=== PATIENT | male | born 1990 | race African-American/Black ===

== ENCOUNTER 2017-09-12 13:33 | Emergency (ER) | payer SELFPAY ==
[2017-09-12] MEDS ORDERED: HYDROcodone/Acetaminophen 5/325 mg Tablet ONE (15:29)
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
== END 2017-09-12 16:43 | disposition home or self-care (01) ==
LOC: ERS 13:33
DX: S62.314A Displaced fracture of base of fourth metacarpal bone, right hand, initial encounter for closed fracture (principal); S62.141A Displaced fracture of body of hamate [unciform] bone, right wrist, initial encounter for closed fracture; F17.210 Nicotine dependence, cigarettes, uncomplicated; W22.01XA Walked into wall, initial encounter
CPT/HCPCS: 29125

== ENCOUNTER 2019-01-14 17:23 | Emergency (ER) | payer SELFPAY | END 2019-01-14 18:20 | disposition home or self-care (01) | LOC: ERS 17:23 | DX: R41.82 Altered mental status, unspecified (principal); F16.90 Hallucinogen use, unspecified, uncomplicated; F17.210 Nicotine dependence, cigarettes, uncomplicated | CPT/HCPCS: 99284 ==

== ENCOUNTER 2020-01-05 12:00 | Emergency (ER) | payer SELFPAY ==
[2020-01-05 13:54] LABS: Bacteria/HPF None Seen HPF (None Seen); Bilirubin Negative (Negative); Blood, Urine 1+ (Negative); Clarity Clear (Clear); Glucose, Urine (Dipstick) Normal (Negative); Leukocyte 75 Leu/uL (Negative); Mucous/LPF 1+ LPF (<2+); Nitrite Negative (Negative); Protein, Urine (Dipstick) 20 mg/dL (Neg-Trace); Squamous Epithelial 0-3 HPF (0-3)
[2020-01-05 14:01] LABS: #Basophils 0.1 thou/uL (0.0-0.2); #Eosinphils 0.2 thou/uL (0.0-0.7); #Lymphocytes 2.1 thou/uL (1.20-3.40); #Monocytes 0.6 thou/uL (0.11-0.59); #Neutrophils 2.7 thou/uL (1.40-6.50); %Basophils 1.6 % (0.0-1.0); %Eosinophils 4.2 % (0.0-10.0); %Lymphocytes 36.2 % (21.0-51.0); Hemoglobin 14.8 g/dL (14.0-18.0); Mean Corpuscular HGB CONC 33.1 g/dL (32.0-36.0); Mean Corpuscular Hemoglobin 32.9 pg (27.0-31.0); Mean Corpuscular Volume 99.5 fL (78.0-98.0); Mean Platelet Volume 7.2 fL (7.4-10.4); Platelet Count 258 thou/uL (130-400); RBC Distribution Width 12.1 % (11.5-14.5); Red Blood Cell (RBC) Count 4.49 mill/uL (4.70-6.10); White Blood Cell (WBC) Count 5.8 thou/uL (4.8-10.8)
[2020-01-05 14:26] LABS: ALT (SGPT) 14 U/L (8-55); AST (SGOT) 28 U/L (5-34); Albumin 4.5 g/dL (3.5-5.0); Alkaline Phosphatase 49 U/L (40-110); Anion Gap 11 mmol/L (10-20); BUN (Urea Nitrogen) 15 mg/dL (8.9-20.6); Bilirubin, Total 1.3 mg/dL (0.2-1.2); CK (CPK) 608 U/L (30-200); Calc. Creatinine Clearance 0 mL/min (70-130); Calcium 9.3 mg/dL (7.8-10.44); Carbon Dioxide 30 mmol/L (22-29); Chloride 102 mmol/L (98-107); Estimated GFR-MDRD 81; Globulin 2.9 g/dL (2.4-3.5); Glucose 83 mg/dL (70-105); Lipase 20 U/L (8-78); Potassium 3.5 mmol/L (3.5-5.1); Protein, Total 7.4 g/dL (6.0-8.3); Sodium 139 mmol/L (136-145)
--- NOTE | 2020-01-05 15:52 | CT ---
Exam: Abdomen CT without contrast Pelvic CT without contrast HISTORY: Left flank pain. Dehydration. COMPARISON: 04/09/2015 FINDINGS: Abdomen CT: Lung bases:Clear Heart size: Normal heart size Aorta: Normal caliber Solid organs: Limited evaluation by the lack of IV contrast. Grossly no solid organ abnormality Lymph nodes: No gastrohepatic, retrocrural or periportal lymphadenopathy Gallbladder: No CT evidence of cholecystitis Mesentery: No mass, lymphadenopathy, free air or free fluid Kidneys: No evidence of right-sided obstructive uropathy. Multiple calculi in the left renal pelvis. Largest calculus measures 0.6 cm. Mild prominence of the left renal pelvis and renal calyces. No evidence of obstructing calculus. The left ureter is decompressed. Alimentary canal: Limited evaluation by the lack of oral contrast. No bowel obstruction. Normal calib er appendix. CT PELVIS: No mass, adenopathy, free air or free fluid. Urinary bladder: No bladder calculi. Osseous structures: No lytic or blastic lesions IMPRESSION: 1. Mild dilatation of the left renal pelvis and left renal calyces without associated obstructive uro sang. 2. Nonobstructing calculi in the left renal pelvis. 3. Normal caliber appendix.
== END 2020-01-05 16:50 | disposition home or self-care (01) ==
LOC: ERS 12:00
DX: R10.9 Unspecified abdominal pain (principal); E86.0 Dehydration; F20.9 Schizophrenia, unspecified; F17.210 Nicotine dependence, cigarettes, uncomplicated
CPT/HCPCS: 74176; 80053; 81003; 81015; 82550; 83690; 85025; 96360; 96361

== ENCOUNTER 2020-03-22 18:09 | Emergency (ER) | payer SELFPAY | END 2020-03-22 19:10 | disposition home or self-care (01) | LOC: ERS 18:09 | DX: R07.9 Chest pain, unspecified (principal); F20.9 Schizophrenia, unspecified; F17.210 Nicotine dependence, cigarettes, uncomplicated; F16.10 Hallucinogen abuse, uncomplicated | CPT/HCPCS: 93005 ==

== ENCOUNTER 2022-08-14 13:16 | Day surgery (SDC) | payer SELFPAY ==
[2022-08-14 14:57] LABS: Bilirubin Negative (Negative); Blood, Urine Trace (Negative); Clarity Turbid (Clear); Glucose, Urine (Dipstick) Normal (Negative); Ketone, Urine Negative (Negative); Leukocyte 500 Leu/uL (Negative); Nitrite Negative (Negative); Protein, Urine (Dipstick) 10 mg/dL (Neg-Trace); Specific Gravity, Urine 1.023 (1.002-1.036); Squamous Epithelial None Seen HPF (0-3); Urobilinogen Normal mg/dL (Less than 2); pH, Urine 7.5 (5.0-9.0)
[2022-08-14 15:03] LABS: Bacteria/HPF 1+ HPF (None Seen)
[2022-08-14] MEDS ORDERED: Ketorolac Tromethamine 30 MG/ML VIAL ONE (17:12)
[2022-08-14 20:54] LABS: Chlam.trachomatis by PCR,Urine DETECTED (NotDetected)
[2022-08-15] MEDS ORDERED: Lidocaine 1% PF 5 ML VIAL ONE (18:55)
[2022-08-15] MEDS ORDERED: cefTRIAXone\\ROCEPHIN 500 MG VIAL ONE (18:55)
== END 2022-08-15 | disposition home or self-care (01) ==
LOC: ERS 13:16
PROVIDERS: ATTEND Emergency Medicine
DX: N39.0 Urinary tract infection, site not specified (principal); F14.10 Cocaine abuse, uncomplicated; F17.290 Nicotine dependence, other tobacco product, uncomplicated; Z87.442 Personal history of urinary calculi
CPT/HCPCS: 81003; 81015; 87491; 87591; J0696; J1885

== ENCOUNTER 2023-01-05 15:18 | Emergency (ER) | payer SELFPAY | END 2023-01-05 16:56 | disposition home or self-care (01) | LOC: ERS 15:18 | DX: H92.02 Otalgia, left ear (principal); F17.290 Nicotine dependence, other tobacco product, uncomplicated | CPT/HCPCS: 99282 ==

== ENCOUNTER 2023-04-05 11:55 | Emergency (ER) | payer SELFPAY ==
[2023-04-05] MEDS ORDERED: cefTRIAXone (ROCEPHIN) 500 MG VIAL ONE (14:16)
[2023-04-05] MEDS ORDERED: Lidocaine 1% PF 5 ML VIAL ONE (14:16)
[2023-04-05 14:33] LABS: Bacteria/HPF None Seen HPF (None Seen); Bilirubin Negative (Negative); Blood, Urine 1+ (Negative); CAUTI Indications for Culture Dysuria,urgency,freq; Clarity Turbid (Clear); Glucose, Urine (Dipstick) Normal (Negative); Ketone, Urine Negative (Negative); Leukocyte 500 Leu/uL (Negative); Nitrite Negative (Negative); Protein, Urine (Dipstick) Negative (Neg-Trace); Specific Gravity, Urine 1.021 (1.002-1.036); Squamous Epithelial None Seen HPF (0-3); Urine Culture Reflex Yes Yes; Urobilinogen Normal mg/dL (Less than 2); WBC/HPF Greater than 50 HPF (0-3); pH, Urine 6.5 (5.0-9.0)
[2023-04-05 22:34] LABS: Chlam.trachomatis by PCR,Urine Not Detected (NotDetected); GC N.gonorrhoeae PCR,UrineVOID DETECTED (NotDetected)
== END 2023-04-05 14:50 | disposition home or self-care (01) ==
LOC: ERS 11:55
DX: N34.1 Nonspecific urethritis (principal); F17.210 Nicotine dependence, cigarettes, uncomplicated
CPT/HCPCS: 81001; 87086; 87491; 87591; 96372; 99283; J0696

== ENCOUNTER 2023-04-28 16:54 | Emergency (ER) | payer OTHER ==
[2023-04-28 18:26] LABS: Bacteria/HPF 1+ HPF (None Seen); Bilirubin Negative (Negative); Blood, Urine 1+ (Negative); CAUTI Indications for Culture Dysuria,urgency,freq; Clarity Turbid (Clear); Glucose, Urine (Dipstick) Normal (Negative); Ketone, Urine Negative (Negative); Leukocyte 500 Leu/uL (Negative); Nitrite Negative (Negative); Protein, Urine (Dipstick) 20 mg/dL (Neg-Trace); Specific Gravity, Urine 1.024 (1.002-1.036); Squamous Epithelial 0-3 HPF (0-3); Urobilinogen Normal mg/dL (Less than 2); WBC/HPF Greater than 50 HPF (0-3); pH, Urine 5.5 (5.0-9.0)
[2023-04-28 18:28] LABS: Urine Culture Reflex Yes Yes
[2023-04-28] MEDS ORDERED: cefTRIAXone (ROCEPHIN) 500 MG VIAL ONE (18:33)
[2023-04-28] MEDS ORDERED: Lidocaine 1% PF 5 ML VIAL ONE (18:34)
[2023-04-29 22:16] LABS: Chlam.trachomatis by PCR,Urine Not Detected (NotDetected); GC N.gonorrhoeae PCR,UrineVOID DETECTED (NotDetected)
== END 2023-04-28 18:53 | disposition home or self-care (01) ==
LOC: ERS 16:54
DX: R36.9 Urethral discharge, unspecified (principal); R10.9 Unspecified abdominal pain; F17.210 Nicotine dependence, cigarettes, uncomplicated; Z20.2 Contact with and (suspected) exposure to infections with a predominantly sexual mode of transmission
CPT/HCPCS: 81001; 87086; 87491; 87591; 96372; 99284; J0696

== ENCOUNTER 2025-04-08 14:41 | Emergency (ER) | payer OTHER, SELFPAY | END 2025-04-08 15:30 | LOC: ERS 14:41 | DX: S60.450A Superficial foreign body of right index finger, initial encounter (principal); F17.210 Nicotine dependence, cigarettes, uncomplicated; W45.8XXA Other foreign body or object entering through skin, initial encounter | CPT/HCPCS: 10120 ==